=== PATIENT | male | born 2000 | race African-American/Black ===

== ENCOUNTER 2023-05-28 20:29 | Emergency (ER) | payer OTHER ==
[2023-05-28 22:13] LABS: BASOPHILS % (AUTO) 0.4 %; EOSINOPHILS % (AUTO) 0.2 %; HCT - HEMATOCRIT 41.4 % (42.0-52.0); HGB - HEMOGLOBIN 13.6 g/dL (14.0-18.0); LYMPHOCYTES # (AUTO) 2.6 10^3/uL (1.5-3.5); LYMPHOCYTES % (AUTO) 26.3 %; MEAN CORPUSCULAR HEMOGLOBIN 29.8 pg (27.0-31.0); MEAN CORPUSCULAR HGB CONC 32.9 g/dL (32.0-36.0); MEAN CORPUSCULAR VOLUME 90.6 fL (80.0-94.0); MEAN PLATELET VOLUME 8.7 fL (7.4-11.4); MONOCYTES # (AUTO) 0.5 10^3/uL (0.0-1.0); MONOCYTES % (AUTO) 4.8 %; NEUTROPHILS # (AUTO) 6.7 10^3/uL (1.5-6.6); NEUTROPHILS % (AUTO) 68.1 %; PLT - PLATELET COUNT 385 10^3/uL (130-450); RED BLOOD COUNT 4.57 10^6/uL (4.70-6.10); RED CELL DISTRIBUTION WIDTH 11.9 % (12.0-15.0); WHITE BLOOD COUNT 9.9 x10^3/uL (4.8-10.8)
--- NOTE | 2023-05-28 22:21 | ED Physician Documentation ---
History of Present Illness - Stated complaint Stated Complaint: RT THIGH PX - Chief complaint Chief Complaint: Ext Problem - History obtained from History obtained from: Patient - History of Present Illness Pain level max: 3 Pain level now: 3 - Additonal information Additional information: 23-year-old male presents to the emergency department stating that intermittently over the past few days he has noticed a swelling, redness and warmth to the distal right thigh. Denies any back pain to me contrary to the triage note. Does not recall any injuries. He did scrape his knee a few days ago but is not having any knee pain. Denies any drug use. No fevers but states he did have chills a few days ago. Worse with movement and palpation. Review of Systems Constitutional: denies: Fever GI: denies: Vomiting, Diarrhea Skin: denies: Rash Musculoskeletal: denies: Neck pain, Back pain Neurologic: denies: Headache PD PAST MEDICAL HISTORY - Past Medical History Past Medical History: No - Past Surgical History Past Surgical History: No - Present Medications Home Medications: Ambulatory Orders Medication Instructions Recorded Confirmed Sulfamethox/Trimeth 800/160 1 each PO BID #14 tablet 05/28/23 [Bactrim Ds 800/160] cephALEXin [Keflex] 500 mg PO Q6H #28 cap 05/28/23 - Allergies Allergies/Adverse Reactions: Allergies Allergy/AdvReac Type Severity Reaction Status Date / Time No Known Drug Allergies Allergy Verified 05/28/23 22:22 PD ED PE NORMAL - Vitals Vital signs reviewed: Yes - General General: Alert and oriented X 3, No acute distress - HEENT HEENT: Moist mucous membranes - Neck Neck: Supple, no meningeal sign - Derm Derm: Warm and dry - Extremities Extremities: Other (Right lower extremity - Mild swelling, erythema and warmth to the medial aspect of the distal thigh. Neurovascular intact. No drainable abscess. No streaking. No swelling of the knee joint. No pain with range of motion of the hip or knee.) - Neuro Neuro: Alert and oriented X 3 Results - Vitals Vitals: Vital Signs - 24 hr 05/28/23 05/28/23 20:59 23:19 Temperature 36.5 C 36.5 C Heart Rate 71 70 Respiratory 17 16 Rate Blood Pressure 145/89 H 130/88 H O2 Saturation 99 100 Oxygen O2 Source Room air - Labs Labs: Laboratory Tests 05/28/23 05/28/23 05/28/23 22:08 22:08 22:08 WBC 9.9 RBC 4.57 L Hgb 13.6 L Hct 41.4 L MCV 90.6 MCH 29.8 MCHC 32.9 RDW 11.9 L Plt Count 385 MPV 8.7 Neut # (Auto) 6.7 H Lymph # (Auto) 2.6 [place] # (Auto) 0.5 Eos # (Auto) 0.0 Baso # (Auto) 0.0 Absolute Nucleated RBC 0.00 Nucleated RBC % 0.0 ESR 14 Sodium 138 Potassium 3.8 Chloride 101 Carbon Dioxide 29 Anion Gap 8.0 BUN 11 Creatinine 0.8 Estimated GFR (MDRD) 145 Glucose 84 Calcium 9.8 C-Reactive Protein 1.4 H - Rads (name of study) Ultrasound right lower extremity Relevant Findings:: Final report received, See rad report PD Medical Decision Making - ED course Complexity details: reviewed results, considered differential, d/w patient ED course: Patient with what appears to be a cellulitis of the right lower extremity. Placed on antibiotics for home and [place] Patient is well-appearing, nontoxic. Afebrile. No significant elevation of his white blood cell count. Ultrasound is consistent with cellulitis as well, no evidence of abscess. No crepitus. No evidence of necrotizing fasciitis or myositis. Patient counseled regarding signs and symptoms for which I believe and urgent re-evaluation would be necessary. Patient with good understanding of and agreement to plan and is comfortable going home at this time This document was made in part using voice recognition software. While efforts are made to proofread this document, sound alike and grammatical errors may occur. Departure - Departure Disposition: Home, Self Care Clinical Impression: Cellulitis Qualifiers: Site of cellulitis: extremity Site of cellulitis of extremity: lower extremity Laterality: right Qualified Code(s): L03.115 - Cellulitis of right lower limb Condition: Good Instructions: ED Infec Skin Cellulitis Follow-Up: [facility] [Provider Group] - Within 3 Days Prescriptions: Sulfamethox/Trimeth 800/160 [Bactrim Ds 800/160] 1 each PO BID #14 tablet cephALEXin [Keflex] 500 mg PO Q6H #28 cap Comments: Your prescriptions were sent to the [facility] pharmacy. Please take all antibiotics until gone. It appears that you have a infection known as cellulitis on your leg. This should improve over the next 1 to 2 days. Please follow-up with your doctor for further care. Forms: PCP List Discharge Date/Time: 05/28/23 23:19
[2023-05-28 22:29] LABS: CALCIUM 9.8 mg/dL (8.5-10.3); CREATININE 0.8 mg/dL (0.6-1.3); CRP - C-REACTIVE PROTEIN 1.4 mg/dL (<0.5); POTASSIUM 3.8 mmol/L (3.5-4.5)
[2023-05-28] MEDS ORDERED: SULFAMETH/TRIMETH DS 800/160 MG TABLET PO STA (22:34)
[2023-05-28] MEDS ORDERED: cephALEXin 250 MG CAPSULE PO STA (22:34)
--- NOTE | 2023-05-28 23:12 | Ultrasound Report ---
PROCEDURE: Ext Limited Non Vascular INDICATIONS: R LE targeted thigh swelling TECHNIQUE: Real-time scanning was performed of the right leg, with image documentation. COMPARISON: None. Findings and impression: No focal fluid collection or mass at the area of concern. Edema is present. This may represent cellul itis. Clinical followup is recommended. If there is new or worsening clinical concern, reimaging coul d be obtained. Reviewed by: Taqueria Polk MD on 05/28/2023 11:11 PM PDT Approved by: Taqueria Polk MD on 05/28/2023 11:11 PM PDT Station ID: [id number]
[2023-05-28 23:20] VITALS: BP 130/88; O2SAT 100
== END 2023-05-28 23:19 | disposition home or self-care (01) ==
LOC: ED 20:29
DX: L03.115 Cellulitis of right lower limb (principal)
CPT/HCPCS: 36415; 76882; 80048; 85025; 85651; 86140; 99283; 99284; A9270